=== PATIENT | female | born 2005 | race Two or more races ===

== ENCOUNTER 2024-12-19 21:11 | Emergency (ER) | payer OTHER ==
[~2024-12-19] VITALS: Ht 165.1 cm; Wt 77.3 kg
[2024-12-19 21:23] VITALS: TEMP 97.9
[2024-12-19 22:03] LABS: PLATELET COUNT (AUTO) 354 K/uL (150-450); RED BLOOD CELL COUNT(AUTO) 4.41 MIL/uL (4.00-5.20); RED CELL DISTRIBUTION WIDTH 13.0 % (11.5-14.5); WHITE BLOOD COUNT (AUTO) 9.7 K/uL (4.5-11.0)
[2024-12-19 22:14] LABS: COVID AG,FIA SOURCE NASAL SWAB
[2024-12-19 22:20] LABS: CALCIUM, TOTAL 9.1 mg/dL (8.8-10.5); CREATININE 0.55 mg/dL (0.60-1.30); GLOMERULAR FILTR. RATE CALC > 60 mL/min (>60); GLUCOSE,RANDOM 109 mg/dL (70-110); SODIUM SERUM 137 mmol/L (136-145); UREA NITROGEN, BLOOD 7 mg/dL (7-18)
[2024-12-19 22:24] LABS: TROPONIN I-HIGH SENSITIVITY 5 ng/L (<51)
[2024-12-19 22:25] LABS: ASPARTATE AMINOTRANSFERASE 93.0 U/L (15-37); TOTAL PROTEIN, SERUM 7.2 g/dL (6.4-8.2)
[2024-12-19 22:41] LABS: INFLUENZA TYPE A NEGATIVE FOR TYPE A (NEGATIVE); INFLUENZA TYPE B NEGATIVE FOR TYPE B (NEGATIVE); SARS-COV2 (COVID) ANTIGEN,FIA Negative (Negative)
[2024-12-20] MEDS: ACETAMINOPHEN 325 MG TABLET PO ONE (01:30)
[2024-12-20 01:39] LABS: APPEARANCE,URINE CLEAR (CLEAR); GLUCOSE, URINE (UA) NEGATIVE (NEGATIVE); LEUKOCYTE ESTERASE ,URINE NEGATIVE (NEGATIVE); NITRATE,URINE NEGATIVE (NEGATIVE); OCCULT BLOOD,URINE NEGATIVE (NEGATIVE); SPECIFIC GRAVITIY, URINE 1.030 (1.003-1.030)
[2024-12-20 01:51] VITALS: BP 121/71; PULSE 80; RESP 16; O2SAT 100
== END 2024-12-20 02:35 | disposition home or self-care (01) ==
LOC: EMS 21:11
DX: O26.899 Other specified pregnancy related conditions, unspecified trimester (principal); Z20.822 Contact with and (suspected) exposure to COVID-19; Z3A.00 Weeks of gestation of pregnancy not specified
CPT/HCPCS: 71045; 80048; 80076; 81003; 84484; 84702; 84703; 85025; 87804; 93005; 99285; 36415-L1; 36415-TC